=== PATIENT | male | born 1995 | race Caucasian/White ===

== ENCOUNTER 2018-04-19 10:55 | Emergency (ER) | payer OTHER ==
[2018-04-19 11:06] VITALS: BP 173/117
--- NOTE | 2018-04-19 11:16 | UC ---
Throat Pain/Nasal Bill HPI - HPI Summary HPI Summary: 23 yo male presents with sinus pain/pressure/congestion for 1 week and right ear pain for 2 days. He has not been taking anything OTC for his symptoms. He tried to let his symptoms "run their course" and "sleep it off", but symptoms are not improving. He does not smoke. Denies fever, chills, cough, SOB, abdominal pain, n/v. - History of Current Complaint Chief Complaint: UCGeneralIllness Stated Complaint: SINUS AND EAR COMPLAINT Time Seen by Provider: 04/19/18 11:16 Hx Obtained From: Patient Severity: Moderate Pain Intensity: 7 Pain Scale Used: 0-10 Numeric - Allergies/Home Medications Allergies/Adverse Reactions: Allergies Allergy/AdvReac Type Severity Reaction Status Date / Time No Known Allergies Allergy Verified 12/17/12 22:04 PMH/Surg Hx/FS Hx/Imm Hx - Additional Past Medical History Additional PMH: None - Surgical History Surgical History: Yes Surgery Procedure, Year, and Place: double hernia repair, testicle surgery - Family History Known Family History: Positive: None - Social History Occupation: Employed Full-time Lives: With Family Alcohol Use: None Substance Use Type: None Smoking Status (MU): Never Smoked Tobacco Review of Systems All Other Systems Reviewed And Are Negative: Yes Constitutional: Positive: Negative Skin: Positive: Negative Eyes: Positive: Negative ENT: Positive: Nasal Discharge, Sinus Congestion, Sinus Pain/Tenderness Respiratory: Positive: Negative Cardiovascular: Positive: Negative Gastrointestinal: Positive: Negative Neurovascular: Positive: Negative Neurological: Positive: Negative Psychological: Positive: Negative Physical Exam - Summary Physical Exam Summary: GENERAL: NAD. WDWN. No pain distress. SKIN: No rashes, sores, lesions, or open wounds. HEENT: Head: AT/NC Eyes: EOM intact. Conjunctiva clear without inflammation or discharge. Ears: Hearing grossly normal. TMs intact, no bulging, erythema, or edema. Nose: Nasal mucosa mildly swollen and erythematous with yellow discharge. TTP maxillary and frontal sinus. Positive post nasal drip Throat: Posterior oropharynx without exudates, erythema, or tonsillar enlargement. Uvula midline. NECK: Supple. Nontender. No lymphadenopathy. CHEST: CTAB. No r/r/w. No accessory muscle use. Breathing comfortably and in no distress. CV: RRR. Without m/r/g. Pulses intact. NEURO: Alert. PSYCH: Age appropriate behavior. Triage Information Reviewed: Yes Vital Signs: Initial Vital Signs Temp 98 F 04/19/18 11:03 Pulse 86 04/19/18 11:03 Resp 17 04/19/18 11:03 BP 173/117 04/19/18 11:03 Pulse Ox 97 04/19/18 11:03 Vital Signs Reviewed: Yes Throat Pain/Nasal Course/Dx - Course Course Of Treatment: Suspect sinusitis. Repeat BP 160/100 - pt says that he was treated for HTN in the past, but has not taken medicine in a few years. He is not having any dizziness, headache, or vision changes. Advised to f/u with PCP regarding this. - Differential Dx/Diagnosis Provider Diagnosis: Sinusitis Discharge - Sign-Out/Discharge Documenting (check all that apply): Patient Departure All imaging exams completed and their final reports reviewed: No Studies - Discharge Plan Condition: Stable Disposition: HOME Prescriptions: Amoxicillin PO (*) [Amoxicillin 875 MG (*)] 875 mg PO BID #14 tab Patient Education Materials: Sinusitis (ED) Referrals: Germán Mackenzie MD [Primary Care Provider] - Additional Instructions: If you develop a fever, shortness of breath, chest pain, new or worsening symptoms - please call your PCP or go to the ED. Your blood pressure was high at todays visit. Please see your primary provider within 4 weeks for recheck and re-evaluation. - Billing Disposition and Condition Condition: STABLE Disposition: Home - Attestation Statements Provider Attestation: Per institutional requirements, I have reviewed the chart, however, I was not consulted specifically or made aware of this patient by the midlevel provider. I did not personally evaluate, interact with , or disposition this patient.
== END 2018-04-19 11:28 | disposition home or self-care (01) ==
LOC: UCEAST 10:55
DX: J32.9 Chronic sinusitis, unspecified (principal)
CPT/HCPCS: 99201; G0463

== ENCOUNTER 2019-01-31 06:13 | Day surgery (SDC) | payer BC, OTHER ==
[~2019-01-31 06:13] MED LIST: Buffered Lidocaine 1% SYRIN* 1 ML/SYRINGE INTRADERM ONE; Dexamethasone IV* 4 MG/ML 1 ML (4 MG) IV SLOW PU ONE; Lactated Ringers 1000 ML Bag* 1,000 ML IV SCH
[2019-01-31] MEDS ORDERED: Dexamethasone IV* 4 MG/ML 1 ML (4 MG) ONE (06:56)
[2019-01-31] MEDS ORDERED: Lidocaine 1% INJ* 10 MG/ML 30 ML SDV ONE (06:56)
[2019-01-31] MEDS ORDERED: Buffered Lidocaine 1% SYRIN* 1 ML/SYRINGE INTRADERM ONE (06:58)
[2019-01-31] MEDS ORDERED: Labetalol IV* 5 MG/ML 20 ML VIAL IV PUSH ONE (07:35)
[2019-01-31] MEDS ORDERED: fentaNYL* 50 MCG/ML 2 ML VIAL (100 MCG VIAL) ONE (07:41)
[2019-01-31] MEDS ORDERED: Midazolam* 1 MG/ML 2 ML VIAL (2 MG) ONE (07:41)
[2019-01-31] MEDS ORDERED: Lidocaine 2% PF * 5 ML VIAL ONE (07:42)
[2019-01-31] MEDS ORDERED: Propofol* 10 MG/ML 20 ML BTL ONE (07:42)
[2019-01-31] MEDS ORDERED: Succinylcholine* 20 MG/ML 10 ML VIAL ONE (07:42)
[2019-01-31] MEDS ORDERED: Labetalol IV* 5 MG/ML 20 ML VIAL ONE (07:50)
[2019-01-31] MEDS ORDERED: Naloxone* 0.4 MG/ML 1 ML VIAL IV PRN (08:00)
[2019-01-31] MEDS ORDERED: DiMENhydriNATE IV* 50 MG/ML VIAL IV PUSH PRN (08:00)
[2019-01-31 09:52] VITALS: BP 135/83
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
== END 2019-01-31 09:54 | disposition home or self-care (01) ==
LOC: OR 06:13
PROVIDERS: ATTEND Internal Medicine Gastroenterology
DX: Z01.818 Encounter for other preprocedural examination (principal); E66.01 Morbid (severe) obesity due to excess calories; Z68.43 Body mass index [BMI] 50.0-59.9, adult; I10 Essential (primary) hypertension; G47.33 Obstructive sleep apnea (adult) (pediatric); J35.1 Hypertrophy of tonsils
CPT/HCPCS: 87077; 88305; J0330; J1100; J2250; J2704; J3010

== ENCOUNTER 2019-03-11 07:22 | Inpatient (IN) | payer OTHER ==
[~2019-03-11 07:22] MED LIST changes: +DiMENhydriNATE IV* 50 MG/ML VIAL IV PUSH PRN; +Famotidine IV* 10 MG/ML 2 ML (20 mg) IV ONE; +HYDROmorphone INJ1* 1 MG/ML SYRINGE IV PRN; +Naloxone* 0.4 MG/ML 1 ML VIAL IV PRN; +Ondansetron INJ* 2 MG/ML VIAL IV ONE; +PROCHLORPERAZINE INJ 5 MG/ML 2 ML VIAL IV PRN; +Scopolamine 1.5 mg* PATCH TRANSDERM ONE; +fentaNYL* 50 MCG/ML 2 ML VIAL (100 MCG VIAL) IV PRN
[2019-03-11] MEDS ORDERED: Heparin VIAL(*) 5000 UNITS/ML VIAL (FIVE THOUSAND) ONE (07:59)
[2019-03-11] MEDS ORDERED: Dexamethasone IV* 4 MG/ML 1 ML (4 MG) ONE (07:59)
[2019-03-11] MEDS ORDERED: ceFAZolin 1 GM ADVAN(*) 1 GM ADDV.VIAL IVPB ONE (08:00)
[2019-03-11] MEDS ORDERED: Ondansetron INJ* 2 MG/ML VIAL ONE ×2 (08:00→11:55)
[2019-03-11] MEDS ORDERED: ceFAZolin 2 GM in NS PREMIX(*) 2 GM/100 ML BAG IVPB ONE (08:00)
[2019-03-11] MEDS ORDERED: Scopolamine 1.5 mg* PATCH ONE (08:00)
[2019-03-11] MEDS ORDERED: Famotidine IV* 10 MG/ML 2 ML (20 mg) ONE (08:00)
[2019-03-11] MEDS ORDERED: fentaNYL* 50 MCG/ML 5 ML VIAL (250 MCG VIAL) ONE (08:07)
[2019-03-11] MEDS ORDERED: Midazolam* 1 MG/ML 5 ML VIAL (5 MG) ONE (08:07)
[2019-03-11] MEDS ORDERED: KETAMINE HCL* 50 MG/ML 10 ML VIAL ONE (08:07)
[2019-03-11] MEDS ORDERED: Rocuronium* 10 MG/ML VIAL ONE (08:07)
[2019-03-11] MEDS ORDERED: Propofol* 10 MG/ML 20 ML BTL ONE (10:50)
[2019-03-11] MEDS ORDERED: Sugammadex * 500 MG/5 ML VIAL IV PUSH ONE (10:50)
[2019-03-11] MEDS ORDERED: Acetaminophen IV 1GM/100ML * 100 ML ONE (10:51)
[2019-03-11] MEDS ORDERED: Phenylephrine 10 MG/ML VIAL* 1 ML VIAL ONE (10:51)
[2019-03-11] MEDS ORDERED: Lidocaine 2% PF * 5 ML VIAL ONE (10:51)
[2019-03-11] MEDS ORDERED: HYDROmorphone INJ1* 1 MG/ML SYRINGE ONE (11:03)
[2019-03-11] MEDS ORDERED: Labetalol IV* 5 MG/ML 20 ML VIAL ONE (11:25)
[2019-03-11] MEDS ORDERED: Ondansetron INJ* 2 MG/ML VIAL IV PRN (11:38)
[2019-03-11] MEDS ORDERED: HYDROmorphone INJ1* 1 MG/ML SYRINGE IV SLOW PU PRN (11:38)
[2019-03-11] MEDS ORDERED: Acetaminophen ADULT LIQ* 650 MG/20.3 ML UDC PO PRN (11:38)
[2019-03-11] MEDS ORDERED: HYDROcodone/ACET. 7.5/325 LIQ* 15 ML UDC PO PRN (11:38)
[2019-03-11] MEDS ORDERED: HYDROmorphone INJ* 0.5 MG/0.5 ML SYRINGE IV SLOW PU PRN (11:38)
--- NOTE | 2019-03-11 11:42 | BRIEFOPN ---
Brief Operative/Procedure Note - Operation Details Pre-Op Diagnosis: Morbid Obesity Post-Op Diagnosis: Same Procedures: Laparoscopic Sleeve Gastrectomy Surgeon(s)/Proceduralists: Dr. Ruvalcaba. Assist: CHERRI Freitas & Jaspreet ALCANTARA Anesthesia: GET Findings: None Specimen(s)/Culture(s) Description: Portion of Stomach Complications: None
[2019-03-11] MEDS ORDERED: Bupivacaine 0.25% EPI 200,000* 30 ML SDV ONE (11:43)
[2019-03-11] MEDS ORDERED: Ketorolac INJ* 30 MG/ML 1 ML VIAL ONE (11:50)
[2019-03-11] MEDS ORDERED: DiMENhydriNATE IV* 50 MG/ML VIAL ONE (11:55)
[2019-03-11] MEDS ORDERED: Ketorolac INJ* 30 MG/ML 1 ML VIAL IV SCH (12:00)
[2019-03-11] MEDS: Lactated Ringers 1000 ML Bag* 1,000 ML IV SCH ×2 (13:00→19:40)
[2019-03-11] MEDS: Ketorolac INJ* 30 MG/ML 1 ML VIAL IV SCH ×2 (18:11→23:51)
--- NOTE | 2019-03-11 20:57 | OP ---
CC: [facility]; CHERRI Cook * DATE OF OPERATION: 03/11/19 - ROOM #352 DATE OF : 89 SURGEON: Bandar Ruvalcaba MD ANIMAL SHELTER MANAGER: CHERRI Benitez ANESTHESIOLOGIST: Dr. Olivares. ANESTHESIA: General endotracheal. PRE-OP DIAGNOSIS: Clinically severe obesity. POST-OP DIAGNOSIS: Clinically severe obesity. OPERATIVE PROCEDURE: Laparoscopic sleeve gastrectomy. ESTIMATED BLOOD LOSS: Minimal. IV FLUIDS: Crystalloid. SPECIMEN: Portion of stomach. DRAINS: None. COMPLICATIONS: None. COUNTS: The instrument, needle, and sponge counts were correct. DESCRIPTION OF PROCEDURE: The patient was brought to the operating room and placed on the table supine. Sequential compression devices were placed on both lower extremities and general anesthesia was administered. His abdomen was prepped and draped in the usual sterile fashion. He received appropriate intravenous antibiotics and time-out was performed. Local anesthetic was infiltrated through the skin and soft issue prior to making each incision. Entry into the abdomen was through a left upper quadrant incision accommodating a 5-mm optical trocar. After accessing the peritoneal cavity, carbon dioxide was insufflated to a pressure of 15 mmHg. Under direct visualization, a 12- mm trocar was placed in the supraumbilical midline and also in the right upper quadrant. A 5-mm trocar was placed in the left upper quadrant laterally. Then a Alexia liver retractor was placed percutaneously in the subxiphoid position and used to elevate the left lobe of the liver. The liver appeared normal. The gastric anatomy appeared normal. The pylorus was identified and 6 cm proximal to this on the greater curvature. The LigaSure was used the skeletonized the greater curvature of the stomach. The dissection proceeded up towards the gastroesophageal junction. The spleen was quite tightly adherent to the fundus and towards the top and posterior dissection was performed to divided short gastric vessels approaching the attachments to the spleen. These were all taken down with the LigaSure. There was noted to be some ischemia of the upper pole of the spleen after this was done. The fundus was completely mobilized from the left dorina of the diaphragm. At this point, the right upper quadrant trocar was upsized to a 15-mm trocar, so that the Endo MYA stapler with a black reinforced cartridge could be used on the antrum. Sleeve gastrectomy was performed over a 40-Chinese bougie with the antral firing as mentioned above. The remaining firings were all with EndoGIA stapler using purple cartridges with reinforcement. After dividing the stomach , staple lines were inspected and noted to be intact and hemostatic. The specimen was retrieved using endoscopic retrieval bag through the right upper quadrant incision, which was then closed with a single suture of 0 Vicryl to approximate the muscle and fascia in one layer. The liver retractor and ports were removed under direct visualization. Carbon dioxide was released. Incisions were closed with 4-0 Monocryl and [place]-Flex was applied. The patient tolerated the procedure well, was extubated uneventfully. He transferred to the recovery room in stable condition. [id number]/[facility] #: [id number] RIYA
[2019-03-11] MEDS: Famotidine IV* 10 MG/ML 2 ML (20 mg) IV SLOW PU SCH (21:58)
[2019-03-11] MEDS: Heparin VIAL(*) 5000 UNITS/ML VIAL (FIVE THOUSAND) SUBCUT SCH (22:01)
[2019-03-12] MEDS: Lactated Ringers 1000 ML Bag* 1,000 ML IV SCH (02:48)
[2019-03-12] MEDS: Ketorolac INJ* 30 MG/ML 1 ML VIAL IV SCH ×3 (05:58→18:20)
[2019-03-12] MEDS: Heparin VIAL(*) 5000 UNITS/ML VIAL (FIVE THOUSAND) SUBCUT SCH ×2 (06:00→13:35)
--- NOTE | 2019-03-12 09:21 | PN ---
Progress Note - Progress Note Date of Service: 03/12/19 Note: S: POD #1. Doing well. David small amts of water. No N/V. Pain minimal. Ambulating. O: Vital Signs - 8 hr 03/12/19 03/12/19 03/12/19 03:34 04:16 08:00 Temperature 97.6 F Pulse Rate 67 Respiratory 16 16 Rate Blood Pressure 151/82 (mmHg) O2 Sat by Pulse 98 98 98 Oximetry 03/12/19 08:20 Temperature 98.5 F Pulse Rate 74 Respiratory 16 Rate Blood Pressure 118/74 (mmHg) O2 Sat by Pulse 94 Oximetry Intake and Output Last 24 Hours 03/10/19 03/11/19 03/12/19 03/13/19 06:59 06:59 06:59 06:59 Intake Total 3180 Output Total 700 0 Balance 2480 0 Weight 387 lb Intake: IV Fluids 3060 LR 3060 Oral 120 Output: Urine 700 0 Other: Estimated Void Large Gen: appears comfortable, lying in bed Heart: reg Lungs: clear Abd: lap sites clean and dry; +BS; soft, min tender to palp A: s/p lap sleeve gastrectomy, doing well P: cont gregor clears; poss d/c later today.
[2019-03-12] MEDS: Famotidine IV* 10 MG/ML 2 ML (20 mg) IV SLOW PU SCH (09:49)
[2019-03-12] MEDS ORDERED: D5W 1/2 NS KCl 20 Meq 1000 ML* 1,000 ML IV SCH (11:41)
[2019-03-12 15:43] VITALS: BP 153/88
--- NOTE | 2019-03-12 23:09 | DS ---
CC: CHERRI Moeller * DISCHARGE SUMMARY: DATE OF ADMISSION: 03/11/19 DATE OF DISCHARGE: 03/12/19 ATTENDING SURGEON: Bandar Ruvalcaba MD.* (DICTATED BY CHERRI DOWNING) HOSPITAL COURSE: Please refer to admission history and physical and operative note for details. The patient was taken to the operating room on 03/11/19, at which time he underwent laparoscopic sleeve gastrectomy with Dr. Ruvalcaba. His postoperative course has been unremarkable, and as of the evening of discharge, he was tolerating bariatric clear liquids well and pain was under good control. Instructions were reviewed regarding wound care, diet, and activity. He has a followup at [facility] scheduled for next week. He was instructed to hold his losartan upon discharge and to monitor his blood pressure at home. He is discharged to home in good condition. CHERRI DOWNING [id number]/[facility] #: [id number] MTDD
[2019-03-14] MEDS ORDERED: Scopolamine PATCH Remove* 1 NOTE MISC PATCH OFF ONE (06:00)
== END 2019-03-12 19:40 | disposition home or self-care (01) | DRG 621 ==
LOC: AA 07:22 → SSU 13:01
PROVIDERS: ADMIT Surgery; ATTEND Surgery
PROC: 0DB64Z3 Excision of Stomach, Percutaneous Endoscopic Approach, Vertical (ICD-10-PCS; principal; 2019-03-11 09:15)
DX: E66.01 Morbid (severe) obesity due to excess calories (principal); G47.33 Obstructive sleep apnea (adult) (pediatric); I10 Essential (primary) hypertension; R73.03 Prediabetes; E55.9 Vitamin D deficiency, unspecified; Z68.43 Body mass index [BMI] 50.0-59.9, adult; Z79.899 Other long term (current) drug therapy; Z88.8 Allergy status to other drugs, medicaments and biological substances; Z80.9 Family history of malignant neoplasm, unspecified; Z87.891 Personal history of nicotine dependence
CPT/HCPCS: 43775; 88307; A9270-GY; J0690; J1100; J1170; J1240; J1644; J1885; J2250; J2405; J2704; J3010